=== PATIENT | female | born 1940 | race Caucasian/White ===

== ENCOUNTER 2017-10-05 14:38 | Emergency (ER) | payer MEDICARE, BC ==
[2017-10-05] MEDS ORDERED: Sodium Chloride 0.9% 1,000 ML IV ONE (15:09)
--- NOTE | 2017-10-05 15:30 | EDM.PDOC ---
ED HPI GENERAL MEDICAL PROBLEM - General Chief Complaint: Gastrointestinal Problem Stated Complaint: HEMMORRAGING Time Seen by Provider: 10/05/17 15:15 Source of Information: Reports: Patient History Limitations: Reports: No Limitations - History of Present Illness INITIAL COMMENTS - FREE TEXT/NARRATIVE: This 76 yo female reports to the ED with rectal bleeding that started over the past week, but has gotten much worse today. The patient reports she had an area of cancer removed from her nose and got constipated after that. The patient started to notice some bleeding about 4 days ago, but it quit. Today, she has notice large volumes of blood with any bowel movement. The patient reports she has been seen in the past for a GI bleed her GI specialist is Dr. Lozano ([place] ). Onset: Today Duration: Constant Location: Reports: Abdomen Quality: Reports: Other Severity: Severe Improves with: Reports: None Worsens with: Reports: None Associated Symptoms: Reports: Other - Related Data Allergies Allergy/AdvReac Type Severity Reaction Status Date / Time FIDENCIO Inhibitors Allergy Cough Verified 10/05/17 14:53 iodine Allergy Itching Verified 10/05/17 14:53 simvastatin Allergy Liver Verified 10/05/17 14:53 Problems Home Meds: Home Meds Ascorbic Acid [Vitamin C] 1,000 mg PO DAILY 02/15/15 [History] Cetirizine [ZyrTEC] 10 mg PO DAILY 02/15/15 [History] Cholecalciferol (Vitamin D3) [Vitamin D3] 1,000 units PO DAILY 02/15/15 [History ] Diltiazem HCl [Cartia Xt] 240 mg PO DAILY 02/15/15 [History] Glimepiride [Amaryl] 2 mg PO BID 02/15/15 [History] Multivitamin with Minerals [Multiple Vitamin] 1 tab PO DAILY 02/15/15 [History] Naltrexone 50 mg PO DAILY 02/15/15 [History] Nitroglycerin [Nitrostat] 0.4 mg SL ASDIRECTED 02/15/15 [History] Omeprazole 20 mg PO DAILY 02/15/15 [History] Sertraline [Zoloft] 100 mg PO DAILY 02/15/15 [History] metFORMIN [Glucophage] 500 mg PO DAILY 02/15/15 [History] Fluocinonide [Lidex 0.05% Crm] 30 gm TOP ASDIRECTED 02/16/15 [History] Past Medical History HEENT History: Reports: Hard of Hearing, Impaired Vision Other HEENT History: wears glasses Cardiovascular History: Reports: High Cholesterol, Hypertension Other Respiratory History: chronic cough Gastrointestinal History: Reports: GERD Genitourinary History: Reports: None MEDICAL VIDEOGRAPHER History: Reports: None Musculoskeletal History: Reports: None Neurological History: Reports: None Psychiatric History: Reports: None Endocrine/Metabolic History: Reports: Diabetes, Type II Hematologic History: Reports: Blood Transfusion(s) Immunologic History: Reports: None Oncologic (Cancer) History: Reports: Basal Cell Carcinoma, Breast Dermatologic History: Reports: None - Infectious Disease History Infectious Disease History: Reports: Chicken Pox, Measles, Mumps - Past Surgical History HEENT Surgical History: Reports: Cataract Surgery GI Surgical History: Reports: Cholecystectomy Female Surgical History: Reports: Hysterectomy, Mastectomy Oncologic Surgical History: Reports: Mastectomy Social & Family History - Tobacco Use Smoking Status *Q: Never Smoker Second Hand Smoke Exposure: No - Caffeine Use Caffeine Use: Reports: Coffee - Recreational Drug Use Recreational Drug Use: No ED ROS GENERAL - Review of Systems Review Of Systems: ROS reveals no pertinent complaints other than HPI. ED EXAM, GI/ABD - Physical Exam Exam: See Below Exam Limited By: No Limitations General Appearance: Alert, WD/WN, Moderate Distress Eyes: Bilateral: Normal Appearance, EOMI Ears: Normal External Exam, Normal Canal, Hearing Grossly Normal, Normal TMs Nose: Normal Inspection, Normal Mucosa, No Blood Throat/Mouth: Normal Inspection, Normal Lips, Normal Teeth, Normal Gums, Normal Oropharynx, Normal Voice, No Airway Compromise Head: Atraumatic, Normocephalic Neck: Normal Inspection, Supple, Non-Tender, Full Range of Motion Respiratory/Chest: No Respiratory Distress, Lungs Clear, Normal Breath Sounds, No Accessory Muscle Use, Chest Non-Tender Cardiovascular: Normal Peripheral Pulses, Regular Rate, Rhythm, No Edema, No Gallop, No JVD, No Murmur, No Rub GI/Abdominal Exam: Other (GI bleed) (Female) Exam: Deferred Rectal (Female) Exam: Bloody Stool (nisa blood with clots), Hemorrhoids Extremities: Normal Inspection, Normal Range of Motion, Non-Tender, Normal Capillary Refill, No Pedal Edema Neurological: Alert, Oriented, CN II-XII Intact, Normal Cognition, Normal Gait, Normal Reflexes, No Motor/Sensory Deficits Psychiatric: Normal Affect, Normal Mood Skin Exam: Warm Lymphatic: No Adenopathy Course - Vital Signs Last Recorded V/S: Last Vital Signs Temp 37.3 C 10/05/17 14:44 Pulse 76 10/05/17 16:46 Resp 16 10/05/17 16:46 BP 131/68 10/05/17 16:46 Pulse Ox 99 10/05/17 16:46 - Orders/Labs/Meds Labs: Laboratory Tests 10/05/17 10/05/17 Range/Units 15:20 15:20 WBC 6.5 (5.0-10.0) 10^3/uL RBC 3.61 L (4.2-5.4) 10^6/uL Hgb 11.5 L (12.0-16.0) g/dL Hct 32.1 L (37.0-47.0) % MCV 88.9 (80-100) fL MCH 31.9 (27.0-34.0) pg MCHC 35.8 H (33.0-35.0) g/dL Plt Count 100 L (150-450) 10^3/uL Neut % (Auto) 60.1 (42.2-75.2) % Lymph % (Auto) 24.5 (20.5-50.1) % [place] % (Auto) 11.0 H (2-8) % Eos % (Auto) 4.1 H (1.0-3.0) % Baso % (Auto) 0.3 (0.0-1.0) % Sodium 133 L (135-145) mmol/L Potassium 4.2 (3.6-5.0) mmol/L Chloride 106 (101-111) mmol/L Carbon Dioxide 19.0 L (21.0-31.0) mmol/L Anion Gap 12.2 BUN 20 H (7-18) mg/dL Creatinine 1.2 (0.6-1.3) mg/dL Est Cr Clr Drug Dosing 37.57 mL/min Estimated GFR (MDRD) 43 BUN/Creatinine Ratio 16.66 Glucose 194 H (74-105) mg/dL Calcium 8.9 (8.4-10.2) mg/dl Total Bilirubin 2.2 H (0.2-1.0) mg/dL AST 45 H (10-42) IU/L ALT 42 (10-60) IU/L Alkaline Phosphatase 74 (42-121) IU/L Total Protein 7.0 (6.7-8.2) g/dl Albumin 3.8 (3.2-5.5) g/dl Globulin 3.2 Albumin/Globulin Ratio 1.19 Meds: Medications Discontinued Medications Generic Name Dose Route Start Last Admin Trade Name Freq PRN Reason Stop Dose Admin Sodium Chloride 1,000 mls @ 999 mls/hr 10/05/17 15:09 10/05/17 15:40 Normal Saline IV 10/05/17 16:09 999 mls/hr .BOLUS ONE Administration Departure - Departure Time of Disposition: 18:20 Disposition: DC/Tfer to Acute Hospital 02 Condition: Serious Clinical Impression: GI bleed Qualifiers: GI bleed type/associated pathology: anorectal hemorrhage Qualified Code(s): K62.5 - Hemorrhage of anus and rectum - Discharge Information Forms: Interfacility Transfer EMTALA Care Plan Goals: Discussed the history, examination, and lab results with Dr. Perry (Hospitalist with [facility] in [place]). Dr. Perry accepted the patient for continued evaluation and management. The patient will be transported by [facility].
[2017-10-05 16:48] VITALS: BP 131/68
== END 2017-10-05 18:48 ==
LOC: DL.ED 14:38
DX: K62.5 Hemorrhage of anus and rectum (principal); E78.00 Pure hypercholesterolemia, unspecified; E11.9 Type 2 diabetes mellitus without complications; I10 Essential (primary) hypertension; Z88.8 Allergy status to other drugs, medicaments and biological substances; Z79.899 Other long term (current) drug therapy
CPT/HCPCS: 36415; 80053; 82272; 85025; 96360; 99284; J7030

== ENCOUNTER → 2018-11-01 | Outpatient (CLI) | payer MEDICARE, BC ==
--- NOTE | 2018-11-01 16:34 | CT ---
Clinical history: 78-year-old hypertensive 172 pound diabetic female with episodic "vertigo". Mastectomy for breast cancer. Scan technique: Volume acquisition of data semiemergent unenhanced CT scan of the head and brain obtained while the patient lying supine on the Siemens multi slice scanner [facility]. All data archived in the PACS system for storage, reformatting axial/sagittal/coronal planes and study (bone/brain windows). MRI brain 24 May 2011. Interpretation: 1. Age-appropriate symmetric cerebral cortical atrophy with underlying mirror-image normal ventricular system. 2. Uniformly thick bony calvarium without sign of pathologic skeletal lesion, skull fracture, underlying brain contusion or epidural/subdural hematoma. 3. Several focal areas of decreased attenuation scattered throughout both cerebral hemispheres i.e. ischemic infarcts. 4. Cerebellum and brainstem unremarkable. No supratentorial or posterior fossa mass lesion. 5. No sign of acute intracerebral/intraventricular/subarachnoid bleed. 6. Symmetric clear pneumatization of the mastoid and paranasal sinuses. CONCLUSION: Chronic multi-infarct ischemic disease as demonstrated on May 2011 MRI scan of the brain. No new evidence of intracranial metastatic or primary neoplastic disease. No hydrocephalus. No intracranial bleed.
== END ==
LOC: DL.CT 13:52
PROVIDERS: ATTEND Nurse Practitioner
DX: R42 Dizziness and giddiness (principal); I25.9 Chronic ischemic heart disease, unspecified
CPT/HCPCS: 70450

== ENCOUNTER 2019-02-20 22:33 | Emergency (ER) | payer MEDICARE, BC ==
[2019-02-20 22:41] VITALS: BP 101/87
--- NOTE | 2019-02-20 22:47 | EDM.PDOC ---
ED HPI GENERAL MEDICAL PROBLEM - General Chief Complaint: Cardiovascular Problem Stated Complaint: DIZZY NOT FEELING WELL Time Seen by Provider: 02/20/19 22:38 Source of Information: Reports: Patient, Family History Limitations: Reports: No Limitations - History of Present Illness INITIAL COMMENTS - FREE TEXT/NARRATIVE: ED ambulatory with c/o SOB since afternoon, feels dizzy. Family report with home sat monitor HR 49 with sats 97%. patient admits intermittent chest pain, Notes no specific orthopnea, no cough, fever or chills. BS earlier this niyah 170. - Related Data Allergies Allergy/AdvReac Type Severity Reaction Status Date / Time FIDENCIO Inhibitors Allergy Cough Verified 02/20/19 23:34 iodine Allergy Itching Verified 02/20/19 23:34 simvastatin Allergy Liver Verified 02/20/19 23:34 Problems Home Meds: Home Meds Ascorbic Acid [Vitamin C] 1,000 mg PO DAILY 02/15/15 [History] Cetirizine [ZyrTEC] 10 mg PO DAILY 02/15/15 [History] Cholecalciferol (Vitamin D3) [Vitamin D3] 1,000 units PO DAILY 02/15/15 [History ] Diltiazem HCl [Cartia Xt] 240 mg PO DAILY 02/15/15 [History] Glimepiride [Amaryl] 2 mg PO BID 02/15/15 [History] Multivitamin with Minerals [Multiple Vitamin] 1 tab PO DAILY 02/15/15 [History] Naltrexone 50 mg PO DAILY 02/15/15 [History] Nitroglycerin [Nitrostat] 0.4 mg SL ASDIRECTED 02/15/15 [History] Omeprazole 20 mg PO DAILY 02/15/15 [History] Sertraline [Zoloft] 100 mg PO DAILY 02/15/15 [History] metFORMIN [Glucophage] 500 mg PO DAILY 02/15/15 [History] Fluocinonide [Lidex 0.05% Crm] 30 gm TOP ASDIRECTED 02/16/15 [History] Past Medical History HEENT History: Reports: Hard of Hearing, Impaired Vision Other HEENT History: wears glasses Cardiovascular History: Reports: High Cholesterol, Hypertension Other Respiratory History: chronic cough Gastrointestinal History: Reports: GERD Genitourinary History: Reports: None LEGAL INVESTIGATOR History: Reports: None Musculoskeletal History: Reports: None Neurological History: Reports: None Psychiatric History: Reports: None Endocrine/Metabolic History: Reports: Diabetes, Type II Hematologic History: Reports: Blood Transfusion(s) Immunologic History: Reports: None Oncologic (Cancer) History: Reports: Basal Cell Carcinoma, Breast Dermatologic History: Reports: None - Infectious Disease History Infectious Disease History: Reports: Chicken Pox, Measles, Mumps - Past Surgical History HEENT Surgical History: Reports: Cataract Surgery GI Surgical History: Reports: Cholecystectomy Female Surgical History: Reports: Hysterectomy, Mastectomy Oncologic Surgical History: Reports: Mastectomy Social & Family History - Caffeine Use Caffeine Use: Reports: Coffee ED ROS GENERAL - Review of Systems Review Of Systems: See Below Constitutional: Reports: Chills HEENT: Reports: No Symptoms Respiratory: Reports: Shortness of Breath, Cough. Denies: Wheezing Cardiovascular: Reports: Chest Pain (brief intermittent, not associated with activity), Dyspnea on Exertion. Denies: Orthopnea, Palpitations Endocrine: Reports: No Symptoms GI/Abdominal: Reports: No Symptoms Skin: Reports: No Symptoms Neurological: Reports: No Symptoms Psychiatric: Reports: No Symptoms ED EXAM, GENERAL - Physical Exam Exam: See Below Exam Limited By: No Limitations General Appearance: Alert, Anxious, Mild Distress Eye Exam: Bilateral Eye: EOMI, PERRL Ears: Normal External Exam, Hearing Grossly Normal Nose: Normal Inspection Throat/Mouth: Normal Inspection Head: Atraumatic, Normocephalic Neck: Normal Inspection Respiratory/Chest: No Respiratory Distress, Decreased Breath Sounds (bilateral bases) Cardiovascular: Regular Rate, Rhythm, No Edema, Bradycardia GI/Abdominal: Normal Bowel Sounds, Soft, Non-Tender Rectal (Female) Exam: Heme - Stool Extremities: Normal Inspection, Normal Range of Motion Neurological: Alert, Oriented, CN II-XII Intact, Normal Cognition, No Motor/ Sensory Deficits Psychiatric: Anxious Skin Exam: Warm, Dry, Intact, Normal Color EKG INTERPRETATION EKG Date: 02/20/19 Comparison: NA - No Prior EKG EKG Interpretation Comments: junctional Course - Vital Signs Last Recorded V/S: Last Vital Signs Temp 98.0 F 02/20/19 22:40 Pulse 51 L 02/20/19 22:40 Resp 20 02/20/19 22:40 BP 101/87 02/20/19 22:40 Pulse Ox 100 02/20/19 22:40 - Orders/Labs/Meds Orders: Active Orders 24 hr Category Date Time Status EKG Documentation Completion [RC] URGENT Care 02/20/19 22:39 Active Chest 1V Frontal [CR] Urgent Exams 02/20/19 22:39 Taken CULTURE BLOOD [BC] Stat Lab 02/20/19 23:30 Received CULTURE BLOOD [BC] Stat Lab 02/20/19 23:30 Results Blood Culture x2 Reflex Set [OM.PC] Stat Oth 02/20/19 23:30 Ordered Labs: Laboratory Tests 02/20/19 02/20/19 02/20/19 Range/Units 22:45 22:45 22:45 WBC 9.2 (5.0-10.0) 10^3/uL RBC 3.64 L (4.2-5.4) 10^6/uL Hgb 11.5 L (12.0-16.0) g/dL Hct 34.2 L (37.0-47.0) % MCV 94.0 D (80-100) fL MCH 31.6 (27.0-34.0) pg MCHC 33.6 (33.0-35.0) g/dL Plt Count 131 L (150-450) 10^3/uL Neut % (Auto) 57.8 (42.2-75.2) % Lymph % (Auto) 25.9 (20.5-50.1) % [place] % (Auto) 11.5 H (2-8) % Eos % (Auto) 4.0 H (1.0-3.0) % Baso % (Auto) 0.8 (0.0-1.0) % D-Dimer, Quantitative 190 (0-400) ng/mL Sodium 139 (135-145) mmol/L Potassium 4.9 (3.6-5.0) mmol/L Chloride 107 (101-111) mmol/L Carbon Dioxide 21.0 (21.0-31.0) mmol/L Anion Gap 15.9 BUN 23 H (7-18) mg/dL Creatinine 2.2 H (0.6-1.3) mg/dL Est Cr Clr Drug Dosing 19.83 mL/min Estimated GFR (MDRD) 21 BUN/Creatinine Ratio 10.45 Glucose 147 H (74-105) mg/dL Lactic Acid (0.5-2.2) mmol/L Calcium 9.2 (8.4-10.2) mg/dl Magnesium 1.9 (1.8-2.5) mg/dL Total Bilirubin 2.2 H (0.2-1.0) mg/dL AST 37 (10-42) IU/L ALT 25 (10-60) IU/L Alkaline Phosphatase 75 (42-121) IU/L CK-MB (CK-2) (0.4-4.7) ng/mL Troponin I 0.02 (0.00-0.02) ng/ml B-Natriuretic Peptide 270 H (0-100) pg/ml Total Protein 7.3 (6.7-8.2) g/dl Albumin 3.8 (3.2-5.5) g/dl Globulin 3.5 Albumin/Globulin Ratio 1.09 TSH, Ultra Sensitive (0.45-5.33) uIu/mL Urine Color (YELLOW) Urine Appearance (CLEAR) Urine pH (5.0-9.0) Ur Specific [place] (1.005-1.030) Urine Protein (NEGATIVE) Urine Glucose (UA) (NEGATIVE) Urine Ketones (NEGATIVE) Urine Occult Blood (NEGATIVE) Urine Nitrite (NEGATIVE) Urine Bilirubin (NEGATIVE) Urine Urobilinogen (0.2-1.0) mg/dL Ur Leukocyte Esterase (NEGATIVE) Urine RBC /HPF Urine WBC (0-5/HPF) /HPF Ur Epithelial Cells (NOT SEEN) /HPF Amorphous Sediment (NOT SEEN) /HPF Urine Bacteria (0-FEW/HPF) /HPF 02/20/19 02/20/19 02/20/19 Range/Units 22:45 22:45 22:45 WBC (5.0-10.0) 10^3/uL RBC (4.2-5.4) 10^6/uL Hgb (12.0-16.0) g/dL Hct (37.0-47.0) % MCV (80-100) fL MCH (27.0-34.0) pg MCHC (33.0-35.0) g/dL Plt Count (150-450) 10^3/uL Neut % (Auto) (42.2-75.2) % Lymph % (Auto) (20.5-50.1) % [place] % (Auto) (2-8) % Eos % (Auto) (1.0-3.0) % Baso % (Auto) (0.0-1.0) % D-Dimer, Quantitative (0-400) ng/mL Sodium (135-145) mmol/L Potassium (3.6-5.0) mmol/L Chloride (101-111) mmol/L Carbon Dioxide (21.0-31.0) mmol/L Anion Gap BUN (7-18) mg/dL Creatinine (0.6-1.3) mg/dL Est Cr Clr Drug Dosing mL/min Estimated GFR (MDRD) BUN/Creatinine Ratio Glucose (74-105) mg/dL Lactic Acid 2.1 (0.5-2.2) mmol/L Calcium (8.4-10.2) mg/dl Magnesium (1.8-2.5) mg/dL Total Bilirubin (0.2-1.0) mg/dL AST (10-42) IU/L ALT (10-60) IU/L Alkaline Phosphatase (42-121) IU/L CK-MB (CK-2) 2.10 (0.4-4.7) ng/mL Troponin I (0.00-0.02) ng/ml B-Natriuretic Peptide (0-100) pg/ml Total Protein (6.7-8.2) g/dl Albumin (3.2-5.5) g/dl Globulin Albumin/Globulin Ratio TSH, Ultra Sensitive 4.31 (0.45-5.33) uIu/mL Urine Color (YELLOW) Urine Appearance (CLEAR) Urine pH (5.0-9.0) Ur Specific [place] (1.005-1.030) Urine Protein (NEGATIVE) Urine Glucose (UA) (NEGATIVE) Urine Ketones (NEGATIVE) Urine Occult Blood (NEGATIVE) Urine Nitrite (NEGATIVE) Urine Bilirubin (NEGATIVE) Urine Urobilinogen (0.2-1.0) mg/dL Ur Leukocyte Esterase (NEGATIVE) Urine RBC /HPF Urine WBC (0-5/HPF) /HPF Ur Epithelial Cells (NOT SEEN) /HPF Amorphous Sediment (NOT SEEN) /HPF Urine Bacteria (0-FEW/HPF) /HPF 02/21/19 Range/Units 00:21 WBC (5.0-10.0) 10^3/uL RBC (4.2-5.4) 10^6/uL Hgb (12.0-16.0) g/dL Hct (37.0-47.0) % MCV (80-100) fL MCH (27.0-34.0) pg MCHC (33.0-35.0) g/dL Plt Count (150-450) 10^3/uL Neut % (Auto) (42.2-75.2) % Lymph % (Auto) (20.5-50.1) % [place] % (Auto) (2-8) % Eos % (Auto) (1.0-3.0) % Baso % (Auto) (0.0-1.0) % D-Dimer, Quantitative (0-400) ng/mL Sodium (135-145) mmol/L Potassium (3.6-5.0) mmol/L Chloride (101-111) mmol/L Carbon Dioxide (21.0-31.0) mmol/L Anion Gap BUN (7-18) mg/dL Creatinine (0.6-1.3) mg/dL Est Cr Clr Drug Dosing mL/min Estimated GFR (MDRD) BUN/Creatinine Ratio Glucose (74-105) mg/dL Lactic Acid (0.5-2.2) mmol/L Calcium (8.4-10.2) mg/dl Magnesium (1.8-2.5) mg/dL Total Bilirubin (0.2-1.0) mg/dL AST (10-42) IU/L ALT (10-60) IU/L Alkaline Phosphatase (42-121) IU/L CK-MB (CK-2) (0.4-4.7) ng/mL Troponin I (0.00-0.02) ng/ml B-Natriuretic Peptide (0-100) pg/ml Total Protein (6.7-8.2) g/dl Albumin (3.2-5.5) g/dl Globulin Albumin/Globulin Ratio TSH, Ultra Sensitive (0.45-5.33) uIu/mL Urine Color Yellow (YELLOW) Urine Appearance Clear (CLEAR) Urine pH 5.5 (5.0-9.0) Ur Specific [place] 1.025 (1.005-1.030) Urine Protein 100 H (NEGATIVE) Urine Glucose (UA) Negative (NEGATIVE) Urine Ketones 15 H (NEGATIVE) Urine Occult Blood Negative (NEGATIVE) Urine Nitrite Negative (NEGATIVE) Urine Bilirubin Negative (NEGATIVE) Urine Urobilinogen 1.0 (0.2-1.0) mg/dL Ur Leukocyte Esterase Negative (NEGATIVE) Urine RBC 0-5 /HPF Urine WBC 0-5 (0-5/HPF) /HPF Ur Epithelial Cells Few (NOT SEEN) /HPF Amorphous Sediment Many H (NOT SEEN) /HPF Urine Bacteria Moderate H (0-FEW/HPF) /HPF Meds: Medications Discontinued Medications Generic Name Dose Route Start Last Admin Trade Name Freq PRN Reason Stop Dose Admin Atropine Sulfate 0.1 mg 02/20/19 23:37 Atropine 0.1 Mg/Ml IVPUSH ONETIME PRN Bradycardia Atropine Sulfate 0.5 mg 02/20/19 23:45 02/20/19 23:50 Atropine 0.1 Mg/Ml IVPUSH 02/20/19 23:46 0.5 mg ONETIME ONE Administration Atropine Sulfate 0.5 mg 02/20/19 23:58 02/21/19 00:10 Atropine IVPUSH 02/20/19 23:59 0.5 mg ONETIME ONE Administration Sodium Chloride 250 mls @ 999 mls/hr 02/20/19 23:45 Normal Saline IV ASDIRECTED [facility] Sodium Chloride 1,000 mls @ 250 mls/hr 02/20/19 23:36 02/21/19 00:00 Normal Saline IV 02/21/19 03:35 100 mls/hr .BOLUS ONE Infusion - Radiology Interpretation Free Text/Narrative:: [facility] Final Radiology Report Call: [phone] assistance Online chat: [email or web address] Name: BRANDI RESENDIZ Age: 78Years F Date: 02/20/2019 SSN: -- : 1940 Study: XR CHEST 1 VIEW FRONTAL Requesting Physician: DEANNE SMITH Images: 1 Addl Studies: Provided Clinical History: Contrast: Contrast Medium: Contrast Amount: Contrast Method: Page 1 of 2 EXAM: XR Chest, 1 View EXAM DATE/TIME: 02/20/2019 11:11 PM CLINICAL HISTORY: 78 years old, female; Shortness of breath TECHNIQUE: Imaging protocol: XR of the chest Views: 1 view. COMPARISON: CR CHEST PA/LAT 03/13/2012 3:06 PM FINDINGS: Lungs: Nonspecific bibasilar consolidation is present, consistent with atelectasis, edema, or pneumonia. Pleural space: No pleural effusion. No pneumothorax. Heart/Mediastinum: The heart demonstrates moderate diffuse enlargement. Bones/joints: The thoracic spine demonstrates mild degenerative changes at multiple levels. Soft tissues: Surgical clips left axillary region. IMPRESSION: 1. The heart demonstrates moderate diffuse enlargement. 2. Nonspecific bibasilar consolidation is present, consistent with atelectasis, edema, or pneumonia. Thank you for allowing us to participate in the care of your patient - Re-Assessments/Exams Free Text/Narrative Re-Assessment/Exam: Initial tx accepted to [facility] by Dr Bustillo, patient's family then requested [facility] as all previous medical care done by [facility] via [facility]. HR and BP improved with atropine. Departure - Departure Time of Disposition: 00:40 Disposition: DC/Tfer to Acute Hospital 02 Reason for Transfer *Q: Other Condition: Undetermined Clinical Impression: Symptomatic bradycardia, HX: breast cancer, Cirrhosis, non-alcoholic Dyspnea Qualifiers: Dyspnea type: shortness of breath Qualified Code(s): R06.02 - Shortness of breath; R06.00 - Dyspnea, unspecified; R06.01 - Orthopnea Type 2 diabetes mellitus Qualifiers: Diabetes mellitus fdc insulin use: without local company intermodal truck driver use Diabetes mellitus complication status: with kidney complications Diabetes mellitus complication detail: with chronic kidney disease Chronic kidney disease stage: unspecified stage Qualified Code(s): E11.22 - Type 2 diabetes mellitus with diabetic chronic kidney disease Referrals: PCP,Unobtain [Ordering Only Provider] - Forms: ED Department Discharge - My Orders Last 24 Hours: My Active Orders 02/20/19 22:39 EKG Documentation Completion [RC] URGENT Chest 1V Frontal [CR] Urgent 02/20/19 23:30 CULTURE BLOOD [BC] Stat CULTURE BLOOD [BC] Stat Blood Culture x2 Reflex Set [OM.PC] Stat - Assessment/Plan Last 24 Hours: My Active Orders 02/20/19 22:39 EKG Documentation Completion [RC] URGENT Chest 1V Frontal [CR] Urgent 02/20/19 23:30 CULTURE BLOOD [BC] Stat CULTURE BLOOD [BC] Stat Blood Culture x2 Reflex Set [OM.PC] Stat
[2019-02-20 23:13] LABS: ANION GAP 15.9
[2019-02-20] MEDS ORDERED: Sodium Chloride 0.9% 1,000 ML IV ONE (23:36)
[2019-02-20] MEDS ORDERED: Atropine 0.1 MG/ML 10 ML Syringe IVPUSH PRN (23:37)
[2019-02-20] MEDS ORDERED: Sodium Chloride 0.9% 250 ML IV SCH (23:45)
[2019-02-20] MEDS ORDERED: Atropine 0.1 MG/ML 10 ML Syringe IVPUSH ONE (23:45)
[2019-02-20] MEDS ORDERED: Atropine 0.4 MG/ML SDV IVPUSH ONE (23:58)
== END 2019-02-21 00:35 ==
LOC: DL.ED 22:33
DX: E11.22 Type 2 diabetes mellitus with diabetic chronic kidney disease (principal); N18.9 Chronic kidney disease, unspecified; R00.1 Bradycardia, unspecified; K74.60 Unspecified cirrhosis of liver; R06.02 Shortness of breath; R06.01 Orthopnea; K21.9 Gastro-esophageal reflux disease without esophagitis; I10 Essential (primary) hypertension; Z91.048 Other nonmedicinal substance allergy status; Z88.8 Allergy status to other drugs, medicaments and biological substances; Z79.899 Other long term (current) drug therapy; Z79.84 Long term (current) use of oral hypoglycemic drugs; Z85.3 Personal history of malignant neoplasm of breast
CPT/HCPCS: 36415; 51701; 71045; 80053; 81001; 82272; 82553; 83605; 83735; 83880; 84443; 84484; 85025; 85379; 87040; 93005; 96361; 96374; 99285; J0461; J7030

== ENCOUNTER 2022-01-24 13:49 | Inpatient (IN) | payer MEDICARE, OTHER ==
[2022-01-24] MEDS ORDERED: Sodium Chloride 0.9% 10 ML Syringe FLUSH PRN (13:54)
[2022-01-24] MEDS ORDERED: Dextrose 5% in Water 1,000 ML IV SCH (14:00)
[2022-01-24 14:38] LABS: PTT,PARTIAL THROMBOPLSTIN TIME 23.8 SEC (22.0-34.0)
[2022-01-24] MEDS ORDERED: 50% Dextrose in Water 50 ML Syringe IVPUSH ONE (14:47)
[2022-01-24 14:53] LABS: ANION GAP 11.2 mEq/L (7-13)
[2022-01-24 14:59] LABS: AMPHETAMINES,URINE NEGATIVE (NEGATIVE); BARBITURATES,URINE NEGATIVE (NEGATIVE); BENZODIAZEPINE,URINE NEGATIVE (NEGATIVE); MDMA (ECSTASY), URINE NEGATIVE (NEGATIVE); METHADONE,URINE NEGATIVE (NEGATIVE); METHAMPHETAMINES,URINE NEGATIVE (NEGATIVE); OPIATES,URINE NEGATIVE (NEGATIVE); OXYCODONE,URINE NEGATIVE (NEGATIVE); PHENCYCLIDINE,URINE NEGATIVE (NEGATIVE); TCA,URINE NEGATIVE (NEGATIVE)
[2022-01-24] MEDS ORDERED: Docusate Sodium 100 MG Cap PO PRN (18:31)
[2022-01-24] MEDS ORDERED: Ondansetron 4 MG/2 ML SDV IVPUSH PRN (18:31)
[2022-01-24] MEDS ORDERED: Glucagon,Human Recombinant 1 MG Vial IM PRN (18:36)
[2022-01-24] MEDS ORDERED: 50% Dextrose in Water 50 ML Syringe IVPUSH PRN (18:36)
[2022-01-24] MEDS ORDERED: cefTRIAXone 1 GM in Sodium Chloride 0.9% 50 ML IV SCH (19:00)
[2022-01-24] MEDS ORDERED: Azithromycin 250 MG Tab PO ONE ×2 (19:00→21:45)
[2022-01-24] MEDS ORDERED: Pantoprazole 40 MG Tab.CR PO SCH (21:00)
[2022-01-24] MEDS: Spironolactone 25 MG Tab PO SCH (21:17)
[2022-01-24] MEDS: Insulin Lispro 100 Units/ML 3 ML Vial SUBCUT SCH (21:17)
[2022-01-24] MEDS: Furosemide 40 MG Tab PO SCH (21:17)
[2022-01-24] MEDS: Propranolol 20 MG Tab PO SCH (21:17)
[2022-01-24] MEDS: Amoxicillin/Clavulanate K 875-125 MG Tab PO SCH (21:30)
[2022-01-24] MEDS ORDERED: Azithromycin 250 MG Tab PO SCH (21:45)
[2022-01-25] MEDS: Insulin Lispro 100 Units/ML 3 ML Vial SUBCUT SCH ×4 (08:17→21:11)
[2022-01-25] MEDS: Furosemide 40 MG Tab PO SCH ×2 (08:56→20:14)
[2022-01-25] MEDS: Amoxicillin/Clavulanate K 875-125 MG Tab PO SCH ×2 (08:57→20:14)
[2022-01-25] MEDS: Propranolol 20 MG Tab PO SCH ×2 (09:00→20:14)
[2022-01-25] MEDS: Spironolactone 25 MG Tab PO SCH (09:00)
[2022-01-25] MEDS ORDERED: Nitroglycerin 0.4 MG Tab.SL SL PRN (09:31)
[2022-01-25] MEDS: Cholecalciferol (Vitamin D3) 25 MCG Tab PO SCH (09:54)
[2022-01-25] MEDS: Naltrexone 50 MG Tab PO SCH (09:54)
[2022-01-25] MEDS: Azithromycin 250 MG Tab PO SCH (17:11)
[2022-01-25] MEDS: Pantoprazole 40 MG Tab.CR PO SCH (20:14)
[2022-01-25] MEDS ORDERED: Propranolol 20 MG Tab PO SCH (21:00)
[2022-01-26] MEDS ORDERED: Acetaminophen 325 MG Tab PO ONE (04:10)
[2022-01-26] MEDS: Pantoprazole 40 MG Tab.CR PO SCH ×2 (06:23→16:24)
[2022-01-26 07:18] LABS: ANION GAP 17.9 mEq/L (7-13)
[2022-01-26] MEDS: Furosemide 40 MG Tab PO SCH ×2 (08:00→14:05)
[2022-01-26] MEDS: Insulin Lispro 100 Units/ML 3 ML Vial SUBCUT SCH ×4 (08:00→21:25)
[2022-01-26] MEDS: Propranolol 20 MG Tab PO SCH ×2 (08:41→21:25)
[2022-01-26] MEDS: Amoxicillin/Clavulanate K 875-125 MG Tab PO SCH ×2 (08:41→21:25)
[2022-01-26] MEDS: Spironolactone 25 MG Tab PO SCH (08:41)
[2022-01-26] MEDS: Cholecalciferol (Vitamin D3) 25 MCG Tab PO SCH (08:41)
[2022-01-26] MEDS: Naltrexone 50 MG Tab PO SCH (08:41)
[2022-01-26] MEDS ORDERED: Lidocaine 1% 5 ML VIAL ONE (12:36)
[2022-01-26] MEDS: Lidocaine 1% 5 ML VIAL INJECT ONE ×2 (13:00→17:43)
[2022-01-26] MEDS ORDERED: Sodium Chloride 0.9% 10 ML Syringe FLUSH PRN (14:42)
[2022-01-26] MEDS: Azithromycin 250 MG Tab PO SCH (18:33)
[2022-01-26] MEDS ORDERED: Cyclobenzaprine 10 MG Tab PO ONE (21:58)
[2022-01-27] MEDS: Acetaminophen 325 MG Tab PO PRN ×2 (00:52→08:17)
[2022-01-27] MEDS: Pantoprazole 40 MG Tab.CR PO SCH (06:00)
[2022-01-27 06:45] LABS: ANION GAP 14.8 mEq/L (7-13)
[2022-01-27] MEDS: Insulin Lispro 100 Units/ML 3 ML Vial SUBCUT SCH ×2 (07:41→12:06)
[2022-01-27] MEDS: Spironolactone 25 MG Tab PO SCH (08:17)
[2022-01-27] MEDS: Naltrexone 50 MG Tab PO SCH (08:17)
[2022-01-27] MEDS: Furosemide 40 MG Tab PO SCH (08:17)
[2022-01-27] MEDS: Cholecalciferol (Vitamin D3) 25 MCG Tab PO SCH ×3 (08:17→10:38)
[2022-01-27] MEDS: Propranolol 20 MG Tab PO SCH (08:17)
[2022-01-27] MEDS: Amoxicillin/Clavulanate K 875-125 MG Tab PO SCH (08:18)
[2022-01-27 12:40] VITALS: BP 148/46; PULSE 56
== END 2022-01-27 13:06 | disposition swing bed (61) | DRG 638 ==
LOC: DL.ED 13:49 → DL.MS 17:03 → OBSVTOIN 01-26 12:03
PROVIDERS: ADMIT Internal Medicine; ATTEND Internal Medicine
PROC: 30233N1 Transfusion of Nonautologous Red Blood Cells into Peripheral Vein, Percutaneous Approach (ICD-10-PCS; principal; 2022-01-26)
DX: E11.649 Type 2 diabetes mellitus with hypoglycemia without coma (principal); R18.8 Other ascites; E78.00 Pure hypercholesterolemia, unspecified; I10 Essential (primary) hypertension; K21.9 Gastro-esophageal reflux disease without esophagitis; M25.551 Pain in right hip; D64.9 Anemia, unspecified; Z79.84 Long term (current) use of oral hypoglycemic drugs; H91.90 Unspecified hearing loss, unspecified ear; Z20.822 Contact with and (suspected) exposure to COVID-19; H54.7 Unspecified visual loss; K74.60 Unspecified cirrhosis of liver; J20.9 Acute bronchitis, unspecified; N39.41 Urge incontinence; Z87.19 Personal history of other diseases of the digestive system; E21.3 Hyperparathyroidism, unspecified; Z85.3 Personal history of malignant neoplasm of breast; Z86.19 Personal history of other infectious and parasitic diseases; Z88.8 Allergy status to other drugs, medicaments and biological substances; Z90.12 Acquired absence of left breast and nipple; Z79.899 Other long term (current) drug therapy; Z98.49 Cataract extraction status, unspecified eye; Z79.4 Long term (current) use of insulin; Z91.09 Other allergy status, other than to drugs and biological substances; Z90.49 Acquired absence of other specified parts of digestive tract; Z90.710 Acquired absence of both cervix and uterus; Z87.891 Personal history of nicotine dependence; I12.9 Hypertensive chronic kidney disease with stage 1 through stage 4 chronic kidney disease, or unspecified chronic kidney disease; E11.22 Type 2 diabetes mellitus with diabetic chronic kidney disease; N18.4 Chronic kidney disease, stage 4 (severe); Z66 Do not resuscitate; K92.2 Gastrointestinal hemorrhage, unspecified
CPT/HCPCS: 36415; 36430; 70450; 71045; 72125; 80048; 80053; 80305-QW; 81001; 82140; 82150; 82272; 82550; 82947; 83605; 83690; 83880; 84145; 84443; 84484; 85025; 85027; 85610; 85730; 86850; 86900; 86901; 86920; 86922; 93005; 93010; 96361; 96374; 97161-GP; 97165-GO; 99219; 99225; 99232; 99239; 99284; 99285-25; A9270-GY; G0378; J1815-GY; J3490; J7060; P9016; U0002

== ENCOUNTER 2022-01-27 13:07 | Inpatient (IN) | payer MEDICARE, OTHER ==
[~2022-01-27 13:07] MED LIST: 50% Dextrose in Water 50 ML Syringe IVPUSH PRN; Docusate Sodium 100 MG Cap PO PRN; Glucagon,Human Recombinant 1 MG Vial IM PRN; Nitroglycerin 0.4 MG Tab.SL SL PRN; Sodium Chloride 0.9% 10 ML Syringe FLUSH PRN
[2022-01-27] MEDS ORDERED: Furosemide 40 MG Tab PO SCH (14:00)
[2022-01-27] MEDS: Insulin Lispro 100 Units/ML 3 ML Vial SUBCUT SCH ×3 (17:16→20:45)
[2022-01-27] MEDS: Pantoprazole 40 MG Tab.CR PO SCH (17:22)
[2022-01-27] MEDS: Azithromycin 250 MG Tab PO SCH (17:22)
[2022-01-27] MEDS: Amoxicillin/Clavulanate K 875-125 MG Tab PO SCH (20:45)
[2022-01-27] MEDS: Propranolol 20 MG Tab PO SCH (20:45)
[2022-01-27] MEDS: Acetaminophen 325 MG Tab PO PRN (22:53)
[2022-01-28] MEDS: Pantoprazole 40 MG Tab.CR PO SCH ×2 (05:02→16:36)
[2022-01-28 07:02] LABS: ANION GAP 13.8 mEq/L (7-13)
[2022-01-28] MEDS ORDERED: Calcium Carbonate 500 MG Tab.Chew PO PRN (08:24)
[2022-01-28] MEDS ORDERED: Loperamide 2 MG Cap PO PRN (08:25)
[2022-01-28] MEDS: Insulin Lispro 100 Units/ML 3 ML Vial SUBCUT SCH ×4 (08:34→20:34)
[2022-01-28] MEDS: Furosemide 40 MG Tab PO SCH (08:34)
[2022-01-28] MEDS: Cholecalciferol (Vitamin D3) 25 MCG Tab PO SCH (08:35)
[2022-01-28] MEDS: Spironolactone 25 MG Tab PO SCH (08:35)
[2022-01-28] MEDS: Naltrexone 50 MG Tab PO SCH (08:35)
[2022-01-28] MEDS: Amoxicillin/Clavulanate K 875-125 MG Tab PO SCH ×2 (08:35→20:33)
[2022-01-28] MEDS: Propranolol 20 MG Tab PO SCH ×2 (08:35→20:33)
[2022-01-28] MEDS: Azithromycin 250 MG Tab PO SCH (16:35)
[2022-01-28] MEDS: Acetaminophen 325 MG Tab PO PRN ×2 (16:35→20:32)
[2022-01-29] MEDS: Acetaminophen 325 MG Tab PO PRN ×4 (03:00→16:31)
[2022-01-29] MEDS: Pantoprazole 40 MG Tab.CR PO SCH ×2 (07:24→15:55)
[2022-01-29] MEDS: Furosemide 40 MG Tab PO SCH (08:13)
[2022-01-29] MEDS: Amoxicillin/Clavulanate K 875-125 MG Tab PO SCH ×2 (08:13→21:24)
[2022-01-29] MEDS: Cholecalciferol (Vitamin D3) 25 MCG Tab PO SCH (08:13)
[2022-01-29] MEDS: Insulin Lispro 100 Units/ML 3 ML Vial SUBCUT SCH ×4 (08:13→21:29)
[2022-01-29] MEDS: Spironolactone 25 MG Tab PO SCH (08:14)
[2022-01-29] MEDS: Propranolol 20 MG Tab PO SCH ×2 (08:14→21:25)
[2022-01-29] MEDS: Naltrexone 50 MG Tab PO SCH (08:14)
[2022-01-29] MEDS ORDERED: Acetaminophen 325 MG Tab PO ONE (20:58)
[2022-01-29] MEDS ORDERED: Menthol 10%/Methyl Salicylate 15% 85 GM Tube TOP PRN (20:59)
[2022-01-30] MEDS: Acetaminophen 325 MG Tab PO PRN ×3 (02:40→21:00)
[2022-01-30] MEDS: Pantoprazole 40 MG Tab.CR PO SCH ×2 (06:38→16:26)
[2022-01-30] MEDS: Propranolol 20 MG Tab PO SCH ×2 (09:16→21:00)
[2022-01-30] MEDS: Naltrexone 50 MG Tab PO SCH (09:16)
[2022-01-30] MEDS: Amoxicillin/Clavulanate K 875-125 MG Tab PO SCH ×2 (09:16→21:00)
[2022-01-30] MEDS: Spironolactone 25 MG Tab PO SCH (09:16)
[2022-01-30] MEDS: Furosemide 40 MG Tab PO SCH (09:16)
[2022-01-30] MEDS: Cholecalciferol (Vitamin D3) 25 MCG Tab PO SCH (09:17)
[2022-01-30] MEDS: Insulin Lispro 100 Units/ML 3 ML Vial SUBCUT SCH ×4 (09:18→21:06)
[2022-01-30] MEDS: Lidocaine 5% 700 MG Patch TOP SCH (09:26)
[2022-01-31] MEDS: Acetaminophen 325 MG Tab PO PRN (02:46)
[2022-01-31] MEDS: Pantoprazole 40 MG Tab.CR PO SCH ×2 (06:01→16:53)
[2022-01-31] MEDS: Propranolol 20 MG Tab PO SCH ×2 (09:36→20:05)
[2022-01-31] MEDS: Spironolactone 25 MG Tab PO SCH (09:36)
[2022-01-31] MEDS: Furosemide 40 MG Tab PO SCH (09:36)
[2022-01-31] MEDS: Amoxicillin/Clavulanate K 875-125 MG Tab PO SCH ×2 (09:36→20:05)
[2022-01-31] MEDS: Lidocaine 5% 700 MG Patch TOP SCH (09:36)
[2022-01-31] MEDS: Naltrexone 50 MG Tab PO SCH (09:36)
[2022-01-31] MEDS: Cholecalciferol (Vitamin D3) 25 MCG Tab PO SCH (09:36)
[2022-01-31] MEDS: Insulin Lispro 100 Units/ML 3 ML Vial SUBCUT SCH ×5 (09:37→20:12)
[2022-01-31 20:33] VITALS: PULSE 60
[2022-02-01] MEDS: Pantoprazole 40 MG Tab.CR PO SCH (05:41)
[2022-02-01 08:37] VITALS: BP 152/57
[2022-02-01] MEDS: Lidocaine 5% 700 MG Patch TOP SCH (09:16)
[2022-02-01] MEDS: Cholecalciferol (Vitamin D3) 25 MCG Tab PO SCH (09:16)
[2022-02-01] MEDS: Propranolol 20 MG Tab PO SCH (09:16)
[2022-02-01] MEDS: Amoxicillin/Clavulanate K 875-125 MG Tab PO SCH (09:16)
[2022-02-01] MEDS: Insulin Lispro 100 Units/ML 3 ML Vial SUBCUT SCH ×2 (09:17→12:30)
[2022-02-01] MEDS: Naltrexone 50 MG Tab PO SCH (09:17)
[2022-02-01] MEDS: Furosemide 40 MG Tab PO SCH (09:17)
[2022-02-01] MEDS: Spironolactone 25 MG Tab PO SCH (09:17)
== END 2022-02-01 13:30 | disposition home or self-care (01) | DRG 948 ==
LOC: DL.MS 13:07
PROVIDERS: ADMIT Internal Medicine; ATTEND Internal Medicine
DX: R53.1 Weakness (principal); N18.4 Chronic kidney disease, stage 4 (severe); R26.81 Unsteadiness on feet; E11.649 Type 2 diabetes mellitus with hypoglycemia without coma; K21.9 Gastro-esophageal reflux disease without esophagitis; H54.7 Unspecified visual loss; H91.90 Unspecified hearing loss, unspecified ear; M25.551 Pain in right hip; E78.5 Hyperlipidemia, unspecified; K74.60 Unspecified cirrhosis of liver; E78.00 Pure hypercholesterolemia, unspecified; J20.9 Acute bronchitis, unspecified; E11.22 Type 2 diabetes mellitus with diabetic chronic kidney disease; I12.9 Hypertensive chronic kidney disease with stage 1 through stage 4 chronic kidney disease, or unspecified chronic kidney disease; M19.90 Unspecified osteoarthritis, unspecified site; Z79.899 Other long term (current) drug therapy; Z88.8 Allergy status to other drugs, medicaments and biological substances; Z79.4 Long term (current) use of insulin; Z87.891 Personal history of nicotine dependence; Z90.49 Acquired absence of other specified parts of digestive tract; Z90.10 Acquired absence of unspecified breast and nipple; Z86.16 Personal history of COVID-19
CPT/HCPCS: 36415; 72100; 80048; 80053; 82947; 85025; 97110-GP; 97140-GP; 97161-GP; 97165-GO; 97530-GO; 99305; 99307; 99315; A4216; A9270-GY; J0881; J3490

== ENCOUNTER 2022-06-01 17:21 | Inpatient (IN) | payer MEDICARE, OTHER ==
[2022-06-01 18:21] LABS: ANION GAP 15.1 mEq/L (7-13)
[2022-06-01 18:51] LABS: RESPIRATORY SYNCYTIAL VIR NAA NEGATIVE (NEGATIVE)
[2022-06-01 19:00] LABS: CORONAVIRUS COVID-19 NAA POSITIVE (NEGATIVE)
[2022-06-01] MEDS ORDERED: Sodium Chloride 0.9% 1,000 ML IV ONE (19:23)
[2022-06-01] MEDS ORDERED: Albuterol/Ipratropium 3.0-0.5 MG/3 ML Neb Soln NEB ONE (19:24)
[2022-06-02] MEDS ORDERED: Albuterol/Ipratropium 3.0-0.5 MG/3 ML Neb Soln NEB ONE (03:10)
[2022-06-02 03:34] LABS: ANION GAP 14.2 mEq/L (7-13)
[2022-06-02] MEDS ORDERED: Furosemide 40 MG/4 ML VIAL IVPUSH ONE (04:13)
[2022-06-02] MEDS ORDERED: Albuterol/Ipratropium 3.0-0.5 MG/3 ML Neb Soln NEB PRN (15:47)
[2022-06-02] MEDS ORDERED: 50% Dextrose in Water 50 ML Syringe IVPUSH PRN ×2 (17:47→18:35)
[2022-06-02] MEDS ORDERED: Glucagon,Human Recombinant 1 MG Vial IM PRN ×2 (17:47→18:35)
[2022-06-02] MEDS ORDERED: Polyethylene Glycol 3350 Powder 17 GM Packet PO PRN (17:52)
[2022-06-02] MEDS ORDERED: Magnesium Hydroxide 400 MG/5 ML Susp 30 ML Cup PO PRN (17:52)
[2022-06-02] MEDS ORDERED: Bisacodyl 5 MG Tab PO PRN (17:52)
[2022-06-02] MEDS ORDERED: Acetaminophen/HYDROcodone 325-5 MG Tab PO PRN (17:52)
[2022-06-02] MEDS ORDERED: Ondansetron 4 MG/2 ML SDV IVPUSH PRN (17:52)
[2022-06-02] MEDS ORDERED: Acetaminophen 325 MG Tab PO PRN (17:52)
[2022-06-02] MEDS ORDERED: HYDROmorphone 0.5 MG/0.5 ML Syringe IVPUSH PRN (17:52)
[2022-06-02] MEDS ORDERED: Insulin Lispro 100 Units/ML 3 ML Vial SUBCUT ONE (18:35)
[2022-06-02] MEDS ORDERED: Dexamethasone 4 MG/ML SDV IVPUSH ONE (20:27)
[2022-06-02] MEDS ORDERED: REMDESIVIR 100 MG in Sodium Chloride 0.9% 100 ML IV SCH (20:30)
[2022-06-02] MEDS ORDERED: REMDESIVIR 200 MG in Sodium Chloride 0.9% 250 ML IV ONE (20:30)
[2022-06-02] MEDS ORDERED: Heparin Sodium 5,000 Units/ML Vial SUBCUT SCH (21:00)
[2022-06-02] MEDS ORDERED: Heparin Sodium 5,000 Units/ML Vial SUBCUT ONE (22:00)
[2022-06-02] MEDS ORDERED: SODIUM CHLORIDE 0.9% IV ONE (22:00)
[2022-06-02] MEDS ORDERED: TOCILIZUMAB IV ONE (22:00)
[2022-06-03 07:21] LABS: ANION GAP 14.9 mEq/L (7-13); CHLORIDE,CL 108 mmol/L (98-107); SODIUM,NA 140 mmol/L (136-145)
[2022-06-03 07:24] LABS: ESTIMATED GFR 27 mL/min (>=60)
[2022-06-03] MEDS: Naltrexone 50 MG Tab PO SCH (08:44)
[2022-06-03] MEDS: Dexamethasone 6 MG TABLET PO SCH (08:45)
[2022-06-03] MEDS: Propranolol 20 MG Tab PO SCH ×2 (08:45→21:14)
[2022-06-03] MEDS: Insulin Lispro 100 Units/ML 3 ML Vial SUBCUT SCH ×3 (08:46→17:13)
[2022-06-03] MEDS ORDERED: Phosphorus #1 250 MG Tab PO SCH (09:00)
[2022-06-03] MEDS ORDERED: Non-Formulary Medication 1 Each (Colestipol 1 GM Tablet) PO SCH (09:00)
[2022-06-03] MEDS: guaiFENesin/Dextromethorphan 100-10 MG/5 ML Soln 5 ML Cup PO PRN (21:14)
[2022-06-04] MEDS ORDERED: Insulin Glarg,Human.Rec.Analog 100 Unit/ML SUBCUT ONE (00:25)
[2022-06-04] MEDS: guaiFENesin/Dextromethorphan 100-10 MG/5 ML Soln 5 ML Cup PO PRN ×2 (04:39→23:29)
[2022-06-04 07:58] LABS: ANION GAP 11.9 mEq/L (7-13); CHLORIDE,CL 108 mmol/L (98-107); SODIUM,NA 139 mmol/L (136-145)
[2022-06-04 08:06] LABS: ESTIMATED GFR 31 mL/min (>=60)
[2022-06-04] MEDS ORDERED: Insulin Glarg,Human.Rec.Analog 100 Unit/ML SUBCUT SCH (09:00)
[2022-06-04] MEDS: Insulin Lispro 100 Units/ML 3 ML Vial SUBCUT SCH ×3 (09:23→16:59)
[2022-06-04] MEDS: Naltrexone 50 MG Tab PO SCH (09:26)
[2022-06-04] MEDS: Dexamethasone 6 MG TABLET PO SCH (09:26)
[2022-06-04] MEDS: Phosphorus #1 250 MG Tab PO SCH (09:27)
[2022-06-04] MEDS: Propranolol 20 MG Tab PO SCH ×2 (09:27→21:04)
[2022-06-04] MEDS: Famotidine 20 MG Tab PO SCH (09:27)
[2022-06-04] MEDS ORDERED: Furosemide 20 MG Tab PO ONE (17:00)
[2022-06-04] MEDS ORDERED: Furosemide 20 MG Tab PO SCH (18:00)
[2022-06-04] MEDS: Insulin Glarg,Human.Rec.Analog 100 Unit/ML SUBCUT SCH (21:01)
[2022-06-05] MEDS: guaiFENesin/Dextromethorphan 100-10 MG/5 ML Soln 5 ML Cup PO PRN (05:58)
[2022-06-05 07:22] LABS: CHLORIDE,CL 107 mmol/L (98-107); ESTIMATED GFR 33 mL/min (>=60); SODIUM,NA 138 mmol/L (136-145)
[2022-06-05 08:40] VITALS: BP 172/77; PULSE 87
[2022-06-05] MEDS ORDERED: Spironolactone 25 MG Tab PO SCH (09:00)
[2022-06-05] MEDS ORDERED: Furosemide 20 MG Tab PO SCH (09:00)
[2022-06-05] MEDS: Naltrexone 50 MG Tab PO SCH (10:04)
[2022-06-05] MEDS: Famotidine 20 MG Tab PO SCH (10:04)
[2022-06-05] MEDS: Dexamethasone 6 MG TABLET PO SCH (10:04)
[2022-06-05] MEDS: Phosphorus #1 250 MG Tab PO SCH (10:04)
[2022-06-05] MEDS: Insulin Lispro 100 Units/ML 3 ML Vial SUBCUT SCH (10:07)
[2022-06-05] MEDS: Propranolol 20 MG Tab PO SCH (10:07)
[2022-06-05] MEDS: Insulin Glarg,Human.Rec.Analog 100 Unit/ML SUBCUT SCH (10:09)
== END 2022-06-05 11:35 | disposition home or self-care (01) | DRG 177 ==
LOC: DL.ED 17:21 → DL.MS 06-02 12:35 → DL.ED 06-02 13:03
PROVIDERS: ADMIT Internal Medicine; ATTEND Internal Medicine
PROC: 3E0333Z Introduction of Anti-inflammatory into Peripheral Vein, Percutaneous Approach (ICD-10-PCS; principal; 2022-06-01)
PROC: 3E0DX3Z Introduction of Anti-inflammatory into Mouth and Pharynx, External Approach (ICD-10-PCS; 2022-06-02)
PROC: 30233N1 Transfusion of Nonautologous Red Blood Cells into Peripheral Vein, Percutaneous Approach (ICD-10-PCS; 2022-06-02)
DX: U07.1 COVID-19 (principal); J81.0 Acute pulmonary edema; J96.01 Acute respiratory failure with hypoxia; J90 Pleural effusion, not elsewhere classified; J98.11 Atelectasis; I12.9 Hypertensive chronic kidney disease with stage 1 through stage 4 chronic kidney disease, or unspecified chronic kidney disease; R18.8 Other ascites; N17.9 Acute kidney failure, unspecified; I13.0 Hypertensive heart and chronic kidney disease with heart failure and stage 1 through stage 4 chronic kidney disease, or unspecified chronic kidney disease; E87.8 Other disorders of electrolyte and fluid balance, not elsewhere classified; K74.60 Unspecified cirrhosis of liver; Z66 Do not resuscitate; N18.30 Chronic kidney disease, stage 3 unspecified; E11.65 Type 2 diabetes mellitus with hyperglycemia; H54.7 Unspecified visual loss; F32.A Depression, unspecified; E11.22 Type 2 diabetes mellitus with diabetic chronic kidney disease; D69.6 Thrombocytopenia, unspecified; E83.51 Hypocalcemia; I50.9 Heart failure, unspecified; E21.3 Hyperparathyroidism, unspecified; K21.9 Gastro-esophageal reflux disease without esophagitis; D50.9 Iron deficiency anemia, unspecified; E86.0 Dehydration; E78.00 Pure hypercholesterolemia, unspecified; E78.5 Hyperlipidemia, unspecified; M19.90 Unspecified osteoarthritis, unspecified site; H91.90 Unspecified hearing loss, unspecified ear; Z79.4 Long term (current) use of insulin; Z79.899 Other long term (current) drug therapy; Z87.891 Personal history of nicotine dependence; Z90.710 Acquired absence of both cervix and uterus; Z85.3 Personal history of malignant neoplasm of breast; Z90.10 Acquired absence of unspecified breast and nipple
CPT/HCPCS: 0241U; 36415; 36430; 71045; 71046; 71250; 80053; 82248; 82272; 82947; 83540; 83550; 83735; 83880; 84145; 85014; 85018; 85025; 85610; 86140; 86850; 86870; 86900; 86901; 86902; 86920; 86922; 94640; 94660; 96361; 96372; 96374; 96375; 99285; A9270-GY; J1100; J1644; J1815-GY; J1940; J7030; J7620-GY; J8540; P9016

== ENCOUNTER 2022-06-07 17:55 | Inpatient (IN) | payer MEDICARE, OTHER ==
[2022-06-07 17:42] LABS: ANION GAP 18.3 mEq/L (7-13)
[2022-06-07] MEDS ORDERED: Furosemide 40 MG/4 ML VIAL IVPUSH ONE (17:58)
[2022-06-07] MEDS ORDERED: Albuterol 0.083% 2.5 MG/3 ML Neb Soln NEB ONE (19:19)
[2022-06-07] MEDS ORDERED: Albuterol/Ipratropium 3.0-0.5 MG/3 ML Neb Soln NEB PRN (21:02)
[2022-06-07] MEDS ORDERED: Sodium Chloride 0.9% 10 ML Syringe FLUSH PRN (21:02)
[2022-06-07] MEDS ORDERED: Polyethylene Glycol 3350 Powder 17 GM Packet PO PRN (21:02)
[2022-06-07] MEDS ORDERED: Magnesium Hydroxide 400 MG/5 ML Susp 30 ML Cup PO PRN (21:02)
[2022-06-07] MEDS ORDERED: HYDROmorphone 0.5 MG/0.5 ML Syringe IVPUSH PRN (21:02)
[2022-06-07] MEDS ORDERED: Acetaminophen/HYDROcodone 325-5 MG Tab PO PRN (21:02)
[2022-06-07] MEDS ORDERED: Ondansetron 4 MG/2 ML SDV IVPUSH PRN (21:02)
[2022-06-07] MEDS ORDERED: Insulin Lispro 100 Units/ML 3 ML Vial SUBCUT PRN (21:09)
[2022-06-07] MEDS ORDERED: 50% Dextrose in Water 50 ML Syringe IVPUSH PRN (21:09)
[2022-06-07] MEDS ORDERED: Glucagon,Human Recombinant 1 MG Vial IM PRN (21:09)
[2022-06-07] MEDS: guaiFENesin/Dextromethorphan 100-10 MG/5 ML Soln 5 ML Cup PO PRN (23:45)
[2022-06-08] MEDS: Acetaminophen 325 MG Tab PO PRN (01:36)
[2022-06-08] MEDS: Heparin Sodium 5,000 Units/ML Vial SUBCUT SCH ×3 (04:04→13:38)
[2022-06-08 07:09] LABS: ANION GAP 17.8 mEq/L (7-13)
[2022-06-08] MEDS: Spironolactone 25 MG Tab PO SCH (08:44)
[2022-06-08] MEDS: Insulin Glarg,Human.Rec.Analog 100 Unit/ML SUBCUT SCH ×2 (08:47→20:52)
[2022-06-08] MEDS ORDERED: Furosemide 40 MG Tab PO SCH ×2 (09:00)
[2022-06-08] MEDS: Insulin Lispro 100 Units/ML 3 ML Vial SUBCUT SCH ×3 (10:14→17:05)
[2022-06-08] MEDS: Sodium Chloride 0.9% 10 ML Syringe FLUSH SCH ×2 (10:15→20:54)
[2022-06-08] MEDS: guaiFENesin/Dextromethorphan 100-10 MG/5 ML Soln 5 ML Cup PO PRN ×2 (11:46→19:29)
[2022-06-08] MEDS: Furosemide 40 MG/4 ML VIAL IVPUSH SCH ×2 (13:37→13:38)
[2022-06-09] MEDS: Heparin Sodium 5,000 Units/ML Vial SUBCUT SCH ×3 (05:20→21:02)
[2022-06-09 09:04] LABS: ANION GAP 12.2 mEq/L (7-13)
[2022-06-09] MEDS: Insulin Lispro 100 Units/ML 3 ML Vial SUBCUT SCH ×3 (09:24→16:59)
[2022-06-09] MEDS: Furosemide 40 MG/4 ML VIAL IVPUSH SCH (09:25)
[2022-06-09] MEDS: Sodium Chloride 0.9% 10 ML Syringe FLUSH SCH ×3 (09:28→20:29)
[2022-06-09] MEDS: Acetaminophen 325 MG Tab PO PRN (09:28)
[2022-06-09] MEDS: Spironolactone 25 MG Tab PO SCH (09:28)
[2022-06-09] MEDS: Insulin Glarg,Human.Rec.Analog 100 Unit/ML SUBCUT SCH ×2 (09:30→20:29)
[2022-06-09] MEDS ORDERED: Lidocaine 1% with EPINEPHrine 1:100,000 20 ML MDV ONE (11:45)
[2022-06-10] MEDS: Heparin Sodium 5,000 Units/ML Vial SUBCUT SCH (05:53)
[2022-06-10 06:40] LABS: ANION GAP 11.2 mEq/L (7-13)
[2022-06-10] MEDS: Insulin Lispro 100 Units/ML 3 ML Vial SUBCUT SCH ×3 (07:07→16:29)
[2022-06-10] MEDS: Insulin Glarg,Human.Rec.Analog 100 Unit/ML SUBCUT SCH ×2 (08:12→20:52)
[2022-06-10] MEDS: Sodium Chloride 0.9% 10 ML Syringe FLUSH SCH (08:13)
[2022-06-10] MEDS ORDERED: Furosemide 40 MG/4 ML VIAL IVPUSH SCH (09:00)
[2022-06-10] MEDS ORDERED: Iron Sucrose Complex 500 MG in Sodium Chloride 0.9% 250 ML IV ONE ×2 (11:04→21:00)
[2022-06-11] MEDS: Insulin Lispro 100 Units/ML 3 ML Vial SUBCUT SCH ×3 (07:55→16:42)
[2022-06-11] MEDS: Sodium Chloride 0.9% 10 ML Syringe FLUSH SCH ×3 (08:03→20:18)
[2022-06-11] MEDS: Insulin Glarg,Human.Rec.Analog 100 Unit/ML SUBCUT SCH ×2 (08:03→20:22)
[2022-06-11] MEDS: Furosemide 40 MG Tab PO SCH (08:04)
[2022-06-11 08:14] LABS: ANION GAP 10.1 mEq/L (7-13)
[2022-06-11] MEDS: Multivitamin Tab PO SCH (20:19)
[2022-06-11] MEDS: Acetaminophen 325 MG Tab PO PRN (20:20)
[2022-06-11] MEDS: Losartan 25 MG Tab PO SCH (20:20)
[2022-06-11] MEDS ORDERED: Mirtazapine 15 MG Tab PO PRN (21:00)
[2022-06-12 06:57] LABS: ANION GAP 12.1 mEq/L (7-13)
[2022-06-12] MEDS: Insulin Lispro 100 Units/ML 3 ML Vial SUBCUT SCH ×3 (07:39→17:04)
[2022-06-12] MEDS: Furosemide 40 MG Tab PO SCH (08:03)
[2022-06-12] MEDS: Sodium Chloride 0.9% 10 ML Syringe FLUSH SCH ×2 (08:04→20:47)
[2022-06-12] MEDS ORDERED: Furosemide 40 MG Tab PO ONE (09:11)
[2022-06-12] MEDS: Multivitamin Tab PO SCH (20:43)
[2022-06-12] MEDS: Losartan 25 MG Tab PO SCH (20:43)
[2022-06-12] MEDS: Insulin Glarg,Human.Rec.Analog 100 Unit/ML SUBCUT SCH (20:44)
[2022-06-13] MEDS: Acetaminophen 325 MG Tab PO PRN (00:26)
[2022-06-13 06:53] LABS: ANION GAP 11.2 mEq/L (7-13)
[2022-06-13] MEDS: Sodium Chloride 0.9% 10 ML Syringe FLUSH SCH (08:30)
[2022-06-13] MEDS ORDERED: Furosemide 40 MG Tab PO SCH (09:00)
[2022-06-13] MEDS: Insulin Lispro 100 Units/ML 3 ML Vial SUBCUT SCH ×2 (09:14→11:58)
[2022-06-13 11:50] VITALS: PULSE 77
[2022-06-13 13:05] VITALS: BP 131/51
== END 2022-06-13 14:34 | disposition swing bed (61) | DRG 291 ==
LOC: DL.ED 17:55 → DL.MS 19:27
PROVIDERS: ADMIT Internal Medicine; ATTEND Internal Medicine
DX: I13.0 Hypertensive heart and chronic kidney disease with heart failure and stage 1 through stage 4 chronic kidney disease, or unspecified chronic kidney disease (principal); I50.33 Acute on chronic diastolic (congestive) heart failure; J96.01 Acute respiratory failure with hypoxia; J90 Pleural effusion, not elsewhere classified; J98.11 Atelectasis; N17.9 Acute kidney failure, unspecified; R18.8 Other ascites; K74.69 Other cirrhosis of liver; I48.91 Unspecified atrial fibrillation; Z86.16 Personal history of COVID-19; Z66 Do not resuscitate; N18.30 Chronic kidney disease, stage 3 unspecified; E11.65 Type 2 diabetes mellitus with hyperglycemia; E11.22 Type 2 diabetes mellitus with diabetic chronic kidney disease; E88.09 Other disorders of plasma-protein metabolism, not elsewhere classified; K74.60 Unspecified cirrhosis of liver; R16.1 Splenomegaly, not elsewhere classified; H54.7 Unspecified visual loss; E78.5 Hyperlipidemia, unspecified; K21.9 Gastro-esophageal reflux disease without esophagitis; D50.9 Iron deficiency anemia, unspecified; M19.90 Unspecified osteoarthritis, unspecified site; G25.81 Restless legs syndrome; F32.A Depression, unspecified; E78.00 Pure hypercholesterolemia, unspecified; H91.90 Unspecified hearing loss, unspecified ear; D69.6 Thrombocytopenia, unspecified; E83.42 Hypomagnesemia; E21.3 Hyperparathyroidism, unspecified; E11.649 Type 2 diabetes mellitus with hypoglycemia without coma; Z90.12 Acquired absence of left breast and nipple; Z88.8 Allergy status to other drugs, medicaments and biological substances; Z79.4 Long term (current) use of insulin; Z79.899 Other long term (current) drug therapy; Z90.49 Acquired absence of other specified parts of digestive tract; Z90.710 Acquired absence of both cervix and uterus; Z87.891 Personal history of nicotine dependence
CPT/HCPCS: 36410; 36415; 71045; 71250; 80048; 80053; 81001; 82728; 82945; 82947; 83540; 83550; 83605; 83615; 83735; 83880; 83986; 84100; 84157; 84439; 84443; 84484; 85025; 85379; 85610; 87040; 87070; 87205; 89051; 93005; 94660; 96374; 99285-25; A9270-GY; J1170; J1644; J1756; J1815-GY; J1940; J3490; J7050; J7620-GY

== ENCOUNTER 2022-06-13 13:01 | Inpatient (IN) | payer MEDICARE, OTHER ==
[2022-06-13] MEDS ORDERED: Glucagon,Human Recombinant 1 MG Vial IM PRN ×2 (13:49)
[2022-06-13] MEDS ORDERED: 50% Dextrose in Water 50 ML Syringe IVPUSH PRN (13:49)
[2022-06-13] MEDS ORDERED: Magnesium Hydroxide 400 MG/5 ML Susp 30 ML Cup PO PRN (13:49)
[2022-06-13] MEDS ORDERED: Ondansetron 4 MG/2 ML SDV IVPUSH PRN (13:49)
[2022-06-13] MEDS ORDERED: Polyethylene Glycol 3350 Powder 17 GM Packet PO PRN (13:49)
[2022-06-13] MEDS ORDERED: guaiFENesin/Dextromethorphan 100-10 MG/5 ML Soln 5 ML Cup PO PRN (13:49)
[2022-06-13] MEDS: Insulin Lispro 100 Units/ML 3 ML Vial SUBCUT SCH (16:57)
[2022-06-13] MEDS ORDERED: Furosemide 40 MG/4 ML VIAL IVPUSH ONE (17:13)
[2022-06-13] MEDS: Multivitamin Tab PO SCH (20:33)
[2022-06-13] MEDS: Acetaminophen 325 MG Tab PO PRN (20:35)
[2022-06-13] MEDS: Losartan 25 MG Tab PO SCH (20:36)
[2022-06-13] MEDS: Insulin Glarg,Human.Rec.Analog 100 Unit/ML SUBCUT SCH (20:55)
[2022-06-13] MEDS ORDERED: Mirtazapine 15 MG Tab PO PRN (21:00)
[2022-06-14] MEDS: Insulin Lispro 100 Units/ML 3 ML Vial SUBCUT SCH ×3 (08:35→17:03)
[2022-06-14] MEDS ORDERED: Furosemide 40 MG Tab PO SCH (09:00)
[2022-06-14] MEDS ORDERED: Spironolactone 25 MG Tab PO SCH (09:00)
[2022-06-14] MEDS ORDERED: Furosemide 40 MG Tab **PT OWN MED PO SCH (12:47)
[2022-06-14] MEDS ORDERED: SPIRONOLACTONE 25 MG PO SCH (12:48)
[2022-06-14] MEDS: Acetaminophen 325 MG Tab PO PRN (21:35)
[2022-06-14] MEDS: Multivitamin Tab PO SCH (21:36)
[2022-06-14] MEDS: Insulin Glarg,Human.Rec.Analog 100 Unit/ML SUBCUT SCH (21:39)
[2022-06-14] MEDS: Losartan 25 MG Tab PO SCH (21:39)
[2022-06-15] MEDS: Insulin Lispro 100 Units/ML 3 ML Vial SUBCUT SCH ×3 (07:46→17:11)
[2022-06-15] MEDS ORDERED: Furosemide 40 MG Tab PO SCH (09:00)
[2022-06-15 20:43] VITALS: PULSE 76
[2022-06-15] MEDS ORDERED: Insulin Glarg,Human.Rec.Analog 100 Unit/ML SUBCUT SCH (21:00)
[2022-06-15] MEDS: Multivitamin Tab PO SCH (21:40)
[2022-06-15] MEDS: Acetaminophen 325 MG Tab PO PRN (21:40)
[2022-06-15] MEDS: Losartan 25 MG Tab PO SCH (21:44)
[2022-06-16] MEDS: Insulin Lispro 100 Units/ML 3 ML Vial SUBCUT SCH (07:52)
[2022-06-16 09:45] VITALS: BP 137/52
== END 2022-06-16 11:00 | DRG 948 ==
LOC: UNDOADMIN 13:52 → DL.MS 13:52
PROVIDERS: ADMIT Internal Medicine; ATTEND Internal Medicine
DX: R53.81 Other malaise (principal); E46 Unspecified protein-calorie malnutrition; N18.4 Chronic kidney disease, stage 4 (severe); I13.0 Hypertensive heart and chronic kidney disease with heart failure and stage 1 through stage 4 chronic kidney disease, or unspecified chronic kidney disease; I50.32 Chronic diastolic (congestive) heart failure; E11.22 Type 2 diabetes mellitus with diabetic chronic kidney disease; E83.42 Hypomagnesemia; Z66 Do not resuscitate; D69.6 Thrombocytopenia, unspecified; K74.60 Unspecified cirrhosis of liver; H54.7 Unspecified visual loss; H91.90 Unspecified hearing loss, unspecified ear; E78.5 Hyperlipidemia, unspecified; K21.9 Gastro-esophageal reflux disease without esophagitis; N39.41 Urge incontinence; E21.3 Hyperparathyroidism, unspecified; G25.81 Restless legs syndrome; M19.90 Unspecified osteoarthritis, unspecified site; F32.A Depression, unspecified; Z90.12 Acquired absence of left breast and nipple; Z88.8 Allergy status to other drugs, medicaments and biological substances; E78.00 Pure hypercholesterolemia, unspecified; Z85.3 Personal history of malignant neoplasm of breast; Z85.828 Personal history of other malignant neoplasm of skin; Z79.899 Other long term (current) drug therapy; Z98.49 Cataract extraction status, unspecified eye; Z90.710 Acquired absence of both cervix and uterus; Z90.49 Acquired absence of other specified parts of digestive tract; Z79.4 Long term (current) use of insulin; Z86.19 Personal history of other infectious and parasitic diseases; Z87.891 Personal history of nicotine dependence
CPT/HCPCS: 71045; 82947; 99305; 99316; A9270-GY; J1940

== ENCOUNTER 2022-11-22 17:33 | Emergency (ER) | payer MEDICARE, OTHER ==
[2022-11-22] MEDS ORDERED: Ondansetron 4 MG/2 ML SDV IV ONE (18:03)
[2022-11-22] MEDS ORDERED: Morphine 2 MG/ML SYRINGE IVPUSH ONE (18:04)
[2022-11-22] MEDS: Sodium Chloride 0.9% 10 ML Syringe FLUSH PRN ×2 (18:23→19:09)
[2022-11-22 18:24] LABS: BASOPHILS PERCENT AUTO 0.1 % (0.0-1.0); EOSINOPHILS PERCENT AUTO 1.2 % (1.0-3.0); HEMATOCRIT 30.9 % (37.0-47.0); HEMOGLOBIN 10.8 g/dL (12.0-16.0); LYMPHOCYTES PERCENT AUTO 5.5 % (20.5-50.1); MEAN CORPUSCULAR HEMOGLOBIN 31.3 pg (27.0-34.0); MEAN CORPUSCULAR VOLUME 89.6 fL (80-100); MONOCYTES PERCENT AUTO 7.4 % (2-8); NEUTROPHILS PERCENT AUTO 85.8 % (42.2-75.2); PLATELET COUNT,PLT 63 10^3/uL (150-450); RED BLOOD CELL COUNT 3.45 10^6/uL (4.2-5.4); WHITE BLOOD CELL COUNT,WBC 7.4 10^3/uL (5.0-10.0)
[2022-11-22] MEDS ORDERED: Cefepime 2 GM Vial IVPUSH ONE (18:26)
[2022-11-22] MEDS ORDERED: Acetaminophen 500 MG Tab PO ONE (18:44)
[2022-11-22 18:45] LABS: ALBUMIN 2.5 g/dL (3.4-5.0); ANION GAP 17.4 mEq/L (7-13); BUN/CREATININE RATIO 29.1 (No establ ref range); CALCIUM 7.9 mg/dL (8.5-10.1); CREATININE 2.61 mg/dL (0.55-1.02); EST CRCL DRUG DOSING (CG) 15.02 mL/min; POTASSIUM,K 4.4 mmol/L (3.5-5.1); PROTEIN TOTAL,TP 5.7 g/dL (6.4-8.2)
[2022-11-22 18:46] LABS: LACTIC ACID 1.8 mmol/L (0.4-2.0)
[2022-11-22 18:47] LABS: A/G RATIO 0.78
[2022-11-22 21:37] VITALS: BP 124/46; PULSE 87
== END 2022-11-22 21:25 | disposition home or self-care (01) ==
LOC: DL.ED 17:33
DX: J90 Pleural effusion, not elsewhere classified (principal); I12.9 Hypertensive chronic kidney disease with stage 1 through stage 4 chronic kidney disease, or unspecified chronic kidney disease; E11.22 Type 2 diabetes mellitus with diabetic chronic kidney disease; N18.30 Chronic kidney disease, stage 3 unspecified; J45.909 Unspecified asthma, uncomplicated; Z86.16 Personal history of COVID-19; Z91.041 Radiographic dye allergy status; Z88.8 Allergy status to other drugs, medicaments and biological substances; Z79.4 Long term (current) use of insulin; Z79.899 Other long term (current) drug therapy; Z20.822 Contact with and (suspected) exposure to COVID-19
CPT/HCPCS: 36415; 71250; 80053; 83605; 83880; 84145; 84484; 85025; 87040; 87804; 93005; 93010; 96374; 96375; 99285; 99285-25; A9270-GY; J0692; J2270; J2405; J3490; U0002

== ENCOUNTER 2022-11-24 15:10 | Emergency (ER) | payer MEDICARE, OTHER ==
[2022-11-24 16:22] VITALS: BP 146/40; PULSE 87
== END 2022-11-24 19:56 | disposition left against medical advice (07) ==
LOC: DL.ED 15:10
DX: Z53.21 Procedure and treatment not carried out due to patient leaving prior to being seen by health care provider (principal)